=== PATIENT | male | born 1960 | race Caucasian/White ===

== ENCOUNTER 2018-04-04 10:45 | Emergency (ER) | payer OTHER ==
[~2018-04-04] VITALS: Ht 175.3 cm; Wt 77.1 kg
[2018-04-04 10:45] VITALS: BP 124/85
--- NOTE | 2018-04-04 10:50 | NUR ---
[id number], CAME TO ER C/O WORSENING RIGHT LOWER QUADRANT ABDOMINAL PAIN X 2 YEARS. RR IS EVEN AND UNLABORED WITH NAD NOTED. SKIN IS WARM AND NON DIAPHORETIC. AWAITING MD FOR EVAL.
== END 2018-04-04 11:18 | disposition home or self-care (01) ==
LOC: ER 10:46
DX: K40.20 Bilateral inguinal hernia, without obstruction or gangrene, not specified as recurrent (principal); I10 Essential (primary) hypertension; F10.10 Alcohol abuse, uncomplicated; F17.200 Nicotine dependence, unspecified, uncomplicated; Y90.9 Presence of alcohol in blood, level not specified
CPT/HCPCS: 99281; A4606; Z7610; Z7502